=== PATIENT | female | born 1940 | race African-American/Black ===

== ENCOUNTER 2023-05-10 15:13 | Outpatient (AMB) | payer MEDICARE, SELFPAY ==
--- NOTE | 2023-05-10 15:31 | HO.NEPHOV ---
Vital Signs 05/10/23 15:33 Height 5 ft 6 in Weight 210 lb 8 oz BMI 34.0 BP 122/74 Blood Pressure Location Lt brachial Position Sitting Pulse 62 Pulse Source Pulse Oximeter Pulse Oximetry (%) 96 Oxygen Delivery Method Room Air Intake Visit Reasons: R/S 05/03/2023/ # Disconnected House Father Required: No Accompanied by: Self / Same As Patient Allergies naproxen Allergy (Unknown, Verified 05/10/23 15:36) Unknown oxycodone [Percodan] Allergy (Unknown, Verified 05/10/23 15:36) Unknown Codeine Phosphate Allergy (Unknown, Uncoded 05/10/23 15:36) Unknown Latex Gloves Allergy (Unknown, Uncoded 05/10/23 15:36) Unknown HPI Comments Details: I had the privilege of seeing Gloria in follow up of her CKD and hypertension. She has been compliant with her medications. Her BP has been at goal and she is tolerating current medication regimen. She has no nausea, vomiting,diarrhea, edema, hematuria, renal stones, flank pain, orthostatic symptoms, NSAID use or any new systemic symptoms. She tries to maintain good hydration and currently feels well. [facility] Medical History (Updated 05/10/23 @ 16:04 by Dipesh cSott MD) Hypertension CKD (chronic kidney disease) stage 3, GFR 30-59 ml/min Surgical History (Updated 05/10/23 @ 15:40 by Dorinda Magana MA) Hx of cholecystectomy History of hysterectomy Family History (Updated 05/10/23 @ 15:41 by Dorinda Magana MA) Father Heart disease Social History (Updated 05/10/23 @ 15:41 by Dorinda Magana MA) Alcohol intake: never Patient Tobacco Use Status: Former Tobacco user Physical Exam Vital Signs: Last Vital Signs Pulse 62 05/10/23 15:33 BP 122/74 05/10/23 15:33 Pulse Ox 96 05/10/23 15:33 Oxygen Delivery Method Room Air 05/10/23 15:33 BMI result Body Mass Index 34.0 Const General: comfortable and no acute distress Orientation/consciousness: patient oriented x3 HEENT Head: Yes normocephalic Mouth: Normal oral and palatal mucosa present Eyes EOM: EOMs intact bilaterally Neck Neck: Yes supple Resp Auscultation: clear to auscultation bilaterally Cardio Jugular venous distension: no JVD Rate: regular rate GI Palpation (GI): Soft to palpation Auscultation: normal bowel sounds General: Yes no CVA tenderness Back/Spine/Pelvis Back: no CVA tenderness Skin General skin exam: no rashes or lesions noted Neuro General: patient oriented x3 and moves all extremities Extrem General: Yes no pedal edema Results Reviewed Nephrology Results: No Data to Display Assessment & Plan Assessment & Plan (1) CKD (chronic kidney disease) stage 3, GFR 30-59 ml/min: Code(s): N18.30 - Chronic kidney disease, stage 3 unspecified Category: Medical Qualifiers: Chronic kidney disease stage 3 subtype: stage 3a (GFR 45-59) Qualified Code(s): N18.31 - Chronic kidney disease, stage 3a (2) Hypertension: Code(s): I10 - Essential (primary) hypertension Category: Medical Qualifiers: Hypertension type: primary hypertension Qualified Code(s): I10 - Essential (primary) hypertension Plan Gloria has long standing hypertension and 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 Her BP has been at goal. She is on ACEI. Her renal functions has been stable. Her urine output is good. She has no orthostasis. She does not take NSAID's and maintain good hydration. I did not make any medication changes today. Follow up labs ordered. Answered all questions. F/U appointment given
[2023-05-10 15:33] VITALS: BP 122/74; PULSE 62; O2SAT 96; BMI 34.0
== END 2023-05-10 16:11 | disposition home or self-care (01) ==
PROVIDERS: PCP Internal Medicine; Visit Provider Internal Medicine Nephrology
DX: N18.31 Chronic kidney disease, stage 3a (principal); I10 Essential (primary) hypertension
CPT/HCPCS: 99214

== ENCOUNTER → 2023-05-10 15:13 | Outpatient (BNVA) | payer MEDICARE, SELFPAY | PROVIDERS: Visit Provider Internal Medicine Nephrology | DX: I12.9 Hypertensive chronic kidney disease with stage 1 through stage 4 chronic kidney disease, or unspecified chronic kidney disease (principal); N18.31 Chronic kidney disease, stage 3a | CPT/HCPCS: 99212 ==

== ENCOUNTER 2023-10-05 13:06 | Outpatient (REF) | payer MEDICARE, SELFPAY ==
[2023-10-05 18:17] LABS: Anion Gap 10 (12-20); Blood Urea Nitrogen 22 mg/dL (9-16); Carbon Dioxide 28 mmol/L (22-29); Chloride 107 mmol/L (96-108); Estimated Glomerular Filt Rate 53; Potassium 4.6 mmol/L (3.3-5.1); Sodium 140 mmol/L (135-145)
[2023-10-05 18:51] LABS: Creatinine Urine 151.94 mg/dL; Protein/Creatinine Ratio, Ur 0.06 (<0.2); Total Protein Urine Random 9 mg/dL (<12)
== END 2023-10-05 13:07 | disposition home or self-care (01) ==
LOC: HO.HKASLDS 13:06
PROVIDERS: Visit Provider Internal Medicine Nephrology
DX: N18.30 Chronic kidney disease, stage 3 unspecified (principal)
CPT/HCPCS: 36415; 80051; 82565; 82570; 84156; 84520

== ENCOUNTER 2023-10-13 15:19 | Outpatient (AMB) | payer MEDICARE, SELFPAY ==
[2023-10-13 15:37] VITALS: BP 130/80; PULSE 75; O2SAT 96; BMI 32.2
--- NOTE | 2023-10-13 15:37 | HO.NEPHOV ---
Vital Signs 10/13/23 15:37 Height 5 ft 6 in Weight 199 lb 8 oz BMI 32.2 BP 130/80 Blood Pressure Location Lt brachial Position Sitting Pulse 75 Pulse Source Pulse Oximeter Pulse Oximetry (%) 96 Oxygen Delivery Method Room Air Intake Visit Reasons: 4 mon follow up/CONF Emergency Care Attendant Required: No Accompanied by: Self / Same As Patient Allergies naproxen Allergy (Unknown, Verified 10/13/23 15:39) Unknown oxycodone [Percodan] Allergy (Unknown, Verified 10/13/23 15:39) Unknown Codeine Phosphate Allergy (Unknown, Uncoded 05/10/23 15:36) Unknown Latex Gloves Allergy (Unknown, Uncoded 05/10/23 15:36) Unknown HPI Comments Details: I had the privilege of seeing Gloria in follow up of her CKD and hypertension. She has been compliant with her medications. Her BP has been at goal and she is tolerating current medication regimen. She has no nausea, vomiting,diarrhea, edema, hematuria, renal stones, flank pain, orthostatic symptoms, NSAID use or any new systemic symptoms. She tries to maintain good hydration and currently feels well. [facility] Medical History (Updated 05/10/23 @ 16:04 by Dipesh Scott MD) Hypertension CKD (chronic kidney disease) stage 3, GFR 30-59 ml/min Surgical History Hx of cholecystectomy History of hysterectomy Family History Father Heart disease Social History Alcohol intake: never Patient Tobacco Use Status: Former Tobacco user Review of Systems Const All systems reviewed & are unremarkable except as noted in HPI and below Physical Exam Vital Signs: Last Vital Signs Pulse 75 10/13/23 15:37 BP 150/80 H 10/13/23 15:37 Pulse Ox 96 10/13/23 15:37 Oxygen Delivery Method Room Air 10/13/23 15:37 BMI result Body Mass Index 32.2 Const General: comfortable and no acute distress Orientation/consciousness: patient oriented x3 HEENT Head: Yes normocephalic Mouth: Normal oral and palatal mucosa present Eyes EOM: EOMs intact bilaterally Neck Neck: Yes supple Resp Auscultation: clear to auscultation bilaterally Cardio Jugular venous distension: no JVD Rate: regular rate GI Palpation (GI): Soft to palpation Auscultation: normal bowel sounds General: Yes no CVA tenderness Back/Spine/Pelvis Back: no CVA tenderness Skin General skin exam: no rashes or lesions noted Neuro General: patient oriented x3 and moves all extremities Extrem General: Yes no pedal edema Results Reviewed Nephrology Results: Sodium 140 mmol/L (135-145) 10/05/23 Potassium 4.6 mmol/L (3.3-5.1) 10/05/23 Chloride 107 mmol/L (96-108) 10/05/23 Carbon Dioxide 28 mmol/L (22-29) 10/05/23 BUN 22 mg/dL (9-16) H 10/05/23 Creatinine 1.01 mg/dL (0.5-1.4) 10/05/23 Urine Creatinine 151.94 mg/dL 10/05/23 Protein/Creatinin Ratio 0.06 (<0.2) 10/05/23 Assessment & Plan Assessment & Plan (1) CKD (chronic kidney disease) stage 3, GFR 30-59 ml/min: Code(s): N18.30 - Chronic kidney disease, stage 3 unspecified Category: Medical Qualifiers: Chronic kidney disease stage 3 subtype: stage 3a (GFR 45-59) Qualified Code(s): N18.31 - Chronic kidney disease, stage 3a (2) Hypertension: Code(s): I10 - Essential (primary) hypertension Category: Medical Qualifiers: Hypertension type: primary hypertension Qualified Code(s): I10 - Essential (primary) hypertension Plan Gloria has long standing hypertension and 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 Her BP has been at goal. She is on ACEI. Her renal functions has been stable. Her urine output is good. She has no orthostasis. She does not take NSAID's and maintain good hydration. I did not make any medication changes today. Follow up labs ordered. Answered all questions. F/U appointment given Orders: Orders Creatinine Today I10 - Essential (primary) hypertension, N18.31 - Chronic kidney disease, stage 3a Blood Urea Nitrogen Today I10 - Essential (primary) hypertension, N18.31 - Chronic kidney disease, stage 3a Electrolytes Today I10 - Essential (primary) hypertension, N18.31 - Chronic kidney disease, stage 3a Coding Level of Care Code Est Pt Level 4 (39328) Diagnoses Stage 3a chronic kidney disease N18.31 Chronic kidney disease stage 3 subtype: stage 3a (GFR 45-59) Primary hypertension I10 Hypertension type: primary hypertension
== END 2023-10-13 15:58 | disposition home or self-care (01) ==
PROVIDERS: PCP Internal Medicine; Visit Provider Internal Medicine Nephrology
DX: N18.31 Chronic kidney disease, stage 3a (principal); I10 Essential (primary) hypertension
CPT/HCPCS: 99214

== ENCOUNTER → 2023-10-13 15:19 | Outpatient (BNVA) | payer MEDICARE, SELFPAY | PROVIDERS: PCP Internal Medicine; Visit Provider Internal Medicine Nephrology | DX: I12.9 Hypertensive chronic kidney disease with stage 1 through stage 4 chronic kidney disease, or unspecified chronic kidney disease (principal); N18.31 Chronic kidney disease, stage 3a | CPT/HCPCS: 99212 ==

== ENCOUNTER 2024-04-11 15:28 | Outpatient (REF) | payer MEDICARE, SELFPAY ==
[2024-04-11 18:16] LABS: Anion Gap 14 (12-20); Blood Urea Nitrogen 16 mg/dL (9-16); Carbon Dioxide 19 mmol/L (22-29); Chloride 110 mmol/L (96-108); Estimated Glomerular Filt Rate > 60; Potassium 4.3 mmol/L (3.3-5.1); Sodium 139 mmol/L (135-145)
--- OUTSIDE RECORDS SUMMARY | 2024-04-11 18:42 | XMS_ITS | Clinical Summary ---
Author Organization [facility] ity Address [address] [place] [id number] Care Team Providers Care Welcome Wagon Hostess Name Role Phone Frankie Norton MD Primary Care Provider [phone] Surgical History Surgery Date Site/Laterality Comments HYSTERECTOMY PROCEDURE: HISTORICAL HYSTERECTOMY OTHER SURGICAL HISTORY PROCEDURE: ---- OTHER ----; COMMENT: laser eye surgery CHOLECYSTECTOMY 03.01.15 PROCEDURE: HISTORICAL CHOLECYSTECTOMY Medical History Medical History Date Comments Essential hypertension, benign 11/16/2004 D X:Essential hypertension, benign Obesity, unspecified 11/16/2004 DX:Obesity, unspecified Unspecified asthma(493.90) 11/16/2004 DX:Un specified asthma(493.90) Generalized osteoarthrosis, unspecified site 11/16/2004 DX:Generalized osteoarthrosi s, unspecified site Glaucoma 05/08/2012 DX:Glaucoma 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) Family History Medical History Relation Name Comments Depression Daughter 1 Anemia Daughter 2 Coronary artery disease Father Hypertension Father Colon cancer Mother in her 70's Diabetes Sister later in life Blindness Neg Hx Breast cancer Neg Hx Cataracts Neg Hx Glaucoma Neg Hx Macular degeneration Neg Hx Strabismus Neg Hx Relation Name Status Comments Daughter 1 Daughter 2 Father Mother Sister Social History Tobacco Use Types Packs/Day Years Used Date Smoking Tobacco: Never Smokeless Tobacco: Never Alcohol Use Standard Drinks/Week Comments No 0 (1 standard drink = 0.6 oz pur e alcohol) Comments Unknown Sex and Gender Information Value Date Recorded Sex Assigned at Not on file Legal Sex Female 7:07 PM EST Gender Identity Not on file Sexual Orientation Not on file Obstetrics History Last Filed Vital Signs Vital Sign Reading Time Taken Comments Blood Pressure 139/62 12/16/2022 3:48 PM EST Pulse 64 12/16/2022 3:48 PM EST Temperature - - Respiratory Rate - - Oxygen Saturation - - Inhaled Oxygen Concentration - - Weight 102 kg (224 lb 1.6 oz) 12/16/2022 3:48 PM EST Height 167.6 cm (5' 6 ) 12/16/2022 3:48 PM EST Body Mass Index 36.17 12/16/2022 3:48 PM EST Plan of Treatment Health Maintenance Due Date Last Done Comments Zoster Vaccines (2 of 3) 02/09/2012 12/15/2011 RSV Immunization Patients 60+ Years Old (1 - 1-dose 75+ series) 2017 Cholesterol Screening (Lipid Panel) 01/16/2022 Colorectal Cancer Screening: Colonoscopy 01/16/2022 Depression Screening 01/16/2022 Falls Risk Assessment 01/16/2022 Hypertension/CHF/CAD Annual BMP Blood Test 01/16/2022 Social Influencers of Health Screening 01/16/2022 COVID-19 Vaccine ( season) 2023 10/17/2023, 09/23/2020, 04/11/2020, Additional history exists DTaP,Tdap,and Td Vaccines (3 - Td or Tdap) 06/10/2031 06/09/2021, 12/19/2002 Osteoporosis Screening (Bone Density Screening) 01/15/2037 01/15/2022 Pneumococcal Vaccine: 50+ Years Completed 11/12/2019, 12/15/2018, 10/03/2017, Additional history exists Influenza Vaccine Completed 10/17/2023, 12/15/2018 HIB Vaccines Aged Out No longer eligi ble based on patient's age to complete this topic HPV Vaccines Aged Out No longer eligi ble based on patient's age to complete this topic Hepatitis A Vaccines Aged Out No long er eligible based on patient's age to complete this topic Hepatitis B Vaccines Aged Out No long er eligible based on patient's age to complete this topic IPV Vaccines Aged Out No longer eligi ble based on patient's age to complete this topic MMR Vaccines Aged Out No longer eligi ble based on patient's age to complete this topic Meningococcal ACWY Vaccine Aged Out N o longer eligible based on patient's age to complete this topic Meningococcal B Vacine Aged Out No lo nger eligible based on patient's age to complete this topic RSV Immunization Patients Under 20 months Aged Out No longer eligible based on patient's age to complete this topic Varicella Vaccines Aged Out No longer eligible based on patient's age to complete this topic Procedures Procedure Name Priority Date/Time Associated Diagnosis Comments DXA BONE DENSITY STUDY 1+ SITS AXIAL SKEL Routine 01/15/2022 10:54 AM EST Endocrine disorder, unspecified from Last 3 Months or Most Recently Relevant to Health Maintenance Results * DXA BONE DENSITY STUDY 1+ SITS AXIAL SKEL (01/15/2022 10:54 AM EST) Anatomical Region Laterality Modality Bone Densitometr y 09/02/2021 11:4 7 AM EDT Narrative 01/19/2022 8:23 AM EST BONE DENSITY SCAN (DEXA): FINDINGS: Lumbar Spine T-score is 1.1. ?? (SD relative to 20-29 y/o adult) Z-score is 3.7. ??(SD relative to age matched peers) This is considered normal by WHO criteria. Left Hip T-score is -1.5. Z-score is 0.8. This is considered osteopenia by WHO criteria. Comparison exam(s): None. IMPRESSION: IMPRESSION: Osteopenia by WHO criteria. This patient has a 15% risk of major osteoporotic fracture and a 3.5% risk of hip fracture over the next 10 years. (World Health Organization Fracture Risk Assessment) [facility] Department of Internal Medicine recommends using National Osteoporosis Foundation (NOF) guidelines in treatment decisions related to osteoporosis. NOF guidelines suggest considering treatment for postmenopausal women and men aged 50 or older presenting with the following: History of hip or vertebral fracture. T-score = -2.5 (DXA) at the femoral neck, total hip, or spine, after appropriate evaluation to exclude secondary causes. Low bone mass (T-score between -1.0 and -2.5 at the femoral neck or spine) AND a 10-year probability of a hip fracture = 3% OR a 10-year probability of a major osteoporosis-related fracture = 20% based on the [place]-adapted WHO algorithm Please note that all treatment decisions require clinical judgment and consideration of individual patient factors, including patient preferences, co-morbidities, previous drug use, risk factors not captured in the FRAX model (e.g., frailty, falls, vitamin D deficiency, increased bone turnover, interval significant decline in bone density) and possible under- or over-estimation of fracture risk by FRAX. Optional alternative screening schedule based on yancy Fuller., [facility] February 25, 2011 for patients with osteopenia (based on hip BMD T-score) is as follows: * ??advanced osteopenia (T scores -2.00 to -2.49), BMD testing every year * ??moderate osteopenia (T scores -1.50 to -1.99), BMD testing every 5 years mild osteopenia or normal BMD (T scores -1.50 and higher), BMD testing every 15 years Procedure Note Kim Larsen MD - 03/15/2023 BONE DENSITY SCAN (DEXA): FINDINGS: Lumbar Spine T-score is 1.1. (SD relative to 20-29 y/o adult) Z-score is 3.7. (SD relative to age matched peers) This is considered normal by WHO criteria. Left Hip T-score is -1.5. Z-score is 0.8. This is considered osteopenia by WHO criteria. Comparison exam(s): None. IMPRESSION: IMPRESSION: Osteopenia by WHO criteria. This patient has a 15% risk of majorosteoporotic fracture and a 3.5% risk of hip fracture over the next 10 years. (World HealthOrganization Fracture Risk Assessment) [facility] Department of Internal Medicine recommendsusing National Osteoporosis Foundation (NOF) guidelines in treatment decisions related toosteoporosis. NOF guidelines suggest considering treatment for postmenopausal women and menaged 50 or older presenting with the following: History of hip or vertebral fracture. T-score = -2.5 (DXA) at the femoral neck, total hip, or spine, afterappropriate evaluation to exclude secondary causes. Low bone mass (T-score between -1.0 and -2.5 at the femoral neck or spine)AND a 10-year probability of a hip fracture = 3% OR a 10-year probability of a majorosteoporosis-related fracture = 20% based on the [place]-adapted WHO algorithm Please note that all treatment decisions require clinical judgment andconsideration of individual patient factors, including patient preferences, co- morbidities,previous drug use, risk factors not captured in the FRAX model (e.g., frailty, falls, vitaminD deficiency, increased bone turnover, interval significant decline in bone density) andpossible under- or over-estimation of fracture risk by FRAX. Optional alternative screening schedule based on yancy Fuller., NEJMJanuary 2011 for patients with osteopenia (based on hip BMD T-score) is as follows: * advanced osteopenia (T scores -2.00 to -2.49), BMD testing every year * moderate osteopenia (T scores -1.50 to -1.99), BMD testing every 5years mild osteopenia or normal BMD (T scores -1.50 and higher), BMD testingevery 15 years Eliza NYE IMRupali DXA PROCEDURES Final Result from Last 3 Months or Most Recently Relevant to Health Maintenance Care Teams Welcome Wagon Hostess Relationship Specialty Start Date End Date Frankie Norton MD PCP - General Internal Medicine 06/09/21
--- OUTSIDE RECORDS SUMMARY | 2024-04-11 18:43 | XMS_ITS | Patient Health Record ---
Author Organization [facility] Address [address] [facility] [address] [place] [address] Care Team Providers Care Client Support Consultant Name Role Phone CARLOS KNOWLES Primary Care Provider Reason For Referral No Information Encounters Encounter Location Date Provider Diagnosis [facility] [address] [facility] [address] [place] [address] 11/02/2023 CARLOS KNOWLES Plan Of Treatment No Information Insurance Providers Payer Name Payer Address Payer Phone Subscriber Number Group Number Insured Name Patient Relationship to Insured Coverage Start Date Coverage End Date [facility] [address] [place] [id number] Gloria Quintanilla Self - patient is the insured
--- OUTSIDE RECORDS SUMMARY | 2024-04-11 18:43 | XMS_ITS | Clinical Summary ---
Author Organization [facility] Address [address] [facility] [address] [place] [address] Phone Care Team Providers Care Delimber Operator Name Role Phone Eliza Barros Primary Care Provider [phone] Allergies Active Allergy Reactions Criticality Noted Date Comments Atenolol 11/16/2004 Ceftriaxone Other (see comments) 03/19/2015 Given at hospital visit 02/28/15 Codeine Other (see comments) 11/02/2016 Latex Other (see comments) 11/02/2016 Morphine 11/02/2016 Naproxen Other (see comments) 03/22/2011 Pentazocine 11/16/2004 Medications albuterol HFA (PROVENTIL HFA;VENTOLIN HFA) 108 (90 Base) MCG/ACT inhaler Comments: Filled Date: Dec 29 2010 12:00AM Duration: 16 Active ferrous sulfate 325 (65 Fe) MG tablet Take 1 tablet by mouth 2 (two) times a day Active metoprolol tartrate 25 MG tablet Take 0.5 tablets by mouth 2 (two) times a day 12/13/2019 Active benazepril (LOTENSIN) 10 MG tablet Take 1 tablet (10 mg total) by mouth 1 (one) time each day 90 tablet 3 08/31/2022 Active cloNIDine (CATAPRES) 0.1 MG tablet Take 1 tablet (0.1 mg total) by mouth in the morning and 1 tablet (0.1 mg total) in the evening. 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 Rios Glaucoma 05/08/2012 09/15/2020 Nuclear sclerosis 05/08/2012 09/15/2020 Retinal hemorrhage 05/08/2012 Cobalamin deficiency 04/21/2011 021 Impaired fasting glucose 04/10/201110/2020 Polyp of colon 04/10/2011 09/15/2020 Overview (09/15/2020): Apparently 5yr f/u per 09/22 colonoscopy, based on 2 small polyps, not clear on report Systolic dysfunction 04/10/2011 021 Overview (09/15/2020): EF 45% on echo 2006 Hearing loss 03/22/2011 09/15/2020 Sleep apnea 03/22/2011 09/15/2020 Overview (09/15/2020): Dr Christine Overweight 11/16/2004 09/15/2020 Immunizations Name Administration Dates Next Due Pneumococcal Polysaccharide 09/19/2013 Family History Medical History Relation Comments Heart disease Father Hypertension Father Relation Status Comments Father Mother Social History Tobacco Use Types Packs/Day Years Used Date Smoking Tobacco: Never Smokeless Tobacco: Never Tobacco Cessation:Counseling Given: Not Answered Alcohol Use Standard Drinks/Week Comments No 0 (1 standard drink = 0.6 oz pur e alcohol) Comments Unknown Sex and Gender Information Value Date Recorded Sex Assigned at Not on file Legal Sex Female 5:12 PM EST Gender Identity Not on file Sexual Orientation Not on file Last Filed Vital Signs Vital Sign Reading Time Taken Comments Blood Pressure 130/68 10/28/2022 2:10 PM EDT Pulse 75 10/28/2022 2:10 PM EDT Temperature - - Respiratory Rate - - Oxygen Saturation 96% 10/28/2022 2:10 PM EDT Inhaled Oxygen Concentration - - Weight 91.6 kg (202 lb) 10/28/2022 2:10 PM EDT Height 167.6 cm (5' 6 ) 09/13/2019 12:00 PM EDT Body Mass Index 32.6 09/13/2019 12:00 PM EDT Plan of Treatment Health Maintenance Due Date Last Done Comments Pneumococcal Vaccine: 65+ Ye ars (2 of 2 - PCV) 09/19/2014 09/19/2013 Influenza Vaccine (#1) 2023 Hepatitis B Vaccine Aged Out No longe r eligible based on patient's age to complete this topic Insurance [employer] Care Teams Delimber Operator Relationship Specialty Start Date End Date Eliza Barros PA PCP - General Physician Train Brakeman 04/19/22
--- OUTSIDE RECORDS SUMMARY | 2024-04-11 18:43 | XMS_ITS ---
Author Organization [facility] Address [address] [address] Care Team Providers Care Rolled Gold Plater Name Role Phone CARLOS KNOWLES Primary Care Provider REASON FOR VISIT FYI only Encounters Encounter Location Date Provider Diagnosis [facility] [address] [facility] [address] [place] [address] 11/02/2023 CARLOS KNOWLES Plan Of Treatment No Information Progress Notes * Gloria WHITE LDOB:1940 ( 82 yo F)Acc No.[id number]:11/02/2023 Patient:?Gloria WHITE :1940???Age:82 Y???Sex:Female Phone: Address:[address] [place] [id number] * true * Date:? Generated for Nesha danielle/Kit/eTransmitting on:?04/11/2024 06:42 PM EST
== END 2024-04-11 15:29 | disposition home or self-care (01) ==
LOC: HO.HKASLDS 15:28
PROVIDERS: Visit Provider Internal Medicine Nephrology
DX: N18.31 Chronic kidney disease, stage 3a (principal); I10 Essential (primary) hypertension
CPT/HCPCS: 36415; 80051; 82565; 84520

== ENCOUNTER 2024-04-12 13:30 | Outpatient (AMB) | payer MEDICARE, SELFPAY ==
--- NOTE | 2024-04-12 13:32 | HO.NEPHOV_ITS ---
Vital Signs 04/12/24 13:52 Height 5 ft 6 in Weight 196 lb 6 oz BMI 31.7 BP 160/70 H Blood Pressure Location Lt brachial Position Sitting Pulse 90 Pulse Source Pulse Oximeter Pulse Oximetry (%) 96 Oxygen Delivery Method Room Air Intake Visit Reasons: 6 mon follow up- Conf Stock Grader Required: No Accompanied by: Self / Same As Patient Allergies naproxen Allergy (Unknown, Verified 04/12/24 13:52) Unknown oxycodone [Percodan] Allergy (Unknown, Verified 04/12/24 13:52) Unknown Codeine Phosphate Allergy (Unknown, Uncoded 05/10/23 15:36) Unknown Latex Gloves Allergy (Unknown, Uncoded 05/10/23 15:36) Unknown HPI Comments Details: I had the privilege of seeing Gloria in follow up of her CKD and hypertension. She forgot to take her medication this morning. She usually has been compliant with her medications. Her BP has been at goal and she is tolerating current medicat ion regimen. She has no nausea, vomiting,diarrhea, edema, hematuria, renal stones, flank pain, orthostatic symptoms, NSAID use or any new systemic symptoms. She tries to maintain good hydration and currently feels well. [facility] Medical History (Updated 05/10/23 @ 16:04 by Dipesh Scott MD) Hypertension CKD (chronic kidney disease) stage 3, GFR 30-59 ml/min Surgical History Hx of cholecystectomy History of hysterectomy Family History Father Heart disease Social History Alcohol intake: never Patient Tobacco Use Status: Former Tobacco user Review of Systems Const All systems reviewed & are unremarkable except as noted in HPI and below Physical Exam Vital Signs: Last Vital Signs Pulse 90 04/12/24 13:52 BP 160/70 H 04/12/24 13:52 Pulse Ox 96 04/12/24 13:52 Oxygen Delivery Method Room Air 04/12/24 13:52 BMI result Body Mass Index 31.7 Const General: comfortable and no acute distress Orientation/consciousness: patient oriented x3 HEENT Head: Yes normocephalic Mouth: Normal oral and palatal mucosa present Eyes EOM: EOMs intact bilaterally Neck Neck: Yes supple Resp Auscultation: clear to auscultation bilaterally Cardio Jugular venous distension: no JVD Rate: regular rate GI Palpation (GI): Soft to palpation Auscultation: normal bowel sounds Skin General skin exam: no rashes or lesions noted Neuro General: patient oriented x3 and moves all extremities Extrem General: Yes no pedal edema Results Reviewed Nephrology Results: Sodium 139 mmol/L (135-145) 04/11/24 Potassium 4.3 mmol/L (3.3-5.1) 04/11/24 Chloride 110 mmol/L (96-108) H 04/11/24 Carbon Dioxide 19 mmol/L (22-29) L 04/11/24 BUN 16 mg/dL (9-16) 04/11/24 Creatinine 0.83 mg/dL (0.5-1.4) 04/11/24 Urine Creatinine 151.94 mg/dL 10/05/23 Protein/Creatinin Ratio 0.06 (<0.2) 10/05/23 Assessment & Plan Assessment & Plan (1) CKD (chronic kidney disease) stage 3, GFR 30-59 ml/min: Code(s): N18.30 - Chronic kidney disease, stage 3 unspecified Category: Medical Qualifiers: Chronic kidney disease stage 3 subtype: stage 3a (GFR 45-59) Qualified Code(s): N18.31 - Chronic kidney disease, stage 3a (2) Hypertension: Code(s): I10 - Essential (primary) hypertension Category: Medical Qualifiers: Hypertension type: primary hypertension Qualified Code(s): I10 - Essential (primary) hypertension Plan Gloria has long standing hypertension and 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 Her BP has been at goal at home. She is on ACEI. Her renal functions has been stable. Her urine output is good. She has no orthostasis. She does not take NSAID's and maintain good hydration. I did not make any medication changes today. Follow up labs ordered. F/U appointment given Orders: Orders Electrolytes 6 Months I10 - Essential (primary) hypertension, N18.31 - Chronic kidney disease, stage 3a Calcium 6 Months I10 - Essential (primary) hypertension, N18.31 - Chronic kidney disease, stage 3a Creatinine 6 Months I10 - Essential (primary) hypertension, N18.31 - Chronic kidney disease, stage 3a Blood Urea Nitrogen 6 Months I10 - Essential (primary) hypertension, N18.31 - Chronic kidney disease, stage 3a Protein Creatinine Ratio, Ur 6 Months I10 - Essential (primary) hypertension, N18.31 - Chronic kidney disease, stage 3a Coding Level of Care Code Est Pt Level 4 (56187) Diagnoses Stage 3a chronic kidney disease N18.31 Chronic kidney disease stage 3 subtype: stage 3a (GFR 45-59) Primary hypertension I10 Hypertension type: primary hypertension
[2024-04-12 13:52] VITALS: BP 160/70; PULSE 90; O2SAT 96; BMI 31.7
--- OUTSIDE RECORDS SUMMARY | 2024-04-12 16:27 | XMS_ITS ---
Author Organization [facility] Address [address] [address] Care Team Providers Care Fur Polisher Name Role Phone CARLOS KNOWLES Primary Care Provider REASON FOR VISIT FYI only Encounters Encounter Location Date Provider Diagnosis [facility] 294 [facility] 202 [place] [address] 11/02/2023 CARLOS KNOWLES Plan Of Treatment No Information Progress Notes * Gloria WHITE LDOB:1940 ( 82 yo F)Acc No.[id number]:11/02/2023 Patient:?Gloria WHITE :1940???Age:82 Y???Sex:Female Phone: Address:[address] [place] [id number] * true * Date:? Generated for Nesha danielle/Kit/eTransmitting on:?04/12/2024 04:27 PM EST
--- OUTSIDE RECORDS SUMMARY | 2024-04-12 16:27 | XMS_ITS | Patient Health Record ---
Author Organization [facility] Address 294 [facility] 202 [place] [address] Care Team Providers Care Cargo Inspector Name Role Phone CARLOS KNOWLES Primary Care Provider Reason For Referral No Information Encounters Encounter Location Date Provider Diagnosis [facility] 294 [facility] 202 [place] [address] 11/02/2023 CARLOS KNOWLES Plan Of Treatment No Information Insurance Providers Payer Name Payer Address Payer Phone Subscriber Number Group Number Insured Name Patient Relationship to Insured Coverage Start Date Coverage End Date [facility] [address] [place] [id number] [phone] [id number] Gloria Quintanilla Self - patient is the insured
--- OUTSIDE RECORDS SUMMARY | 2024-04-12 16:27 | XMS_ITS | Clinical Summary ---
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 (World HealthOrganization Fracture Risk Assessment) [facility] Department of Internal Medicine recommendsusing National Osteoporosis [...] Recently Relevant to Health Maintenance Care Teams Fire Truck Driver Relationship Specialty Start Date End Date Frankie Norton MD PCP - General Internal Medicine 06/09/21
--- OUTSIDE RECORDS SUMMARY | 2024-04-12 16:27 | XMS_ITS | Clinical Summary ---
Author Organization [facility] Address 100 [facility] [address] [place] [address] Phone Care Team Providers Care Water Sponger Name Role Phone Eliza Barros Primary Care Provider Allergies Active Allergy Reactions Criticality Noted Date [...] Hypertension 11/16/2004 Overview (09/15/2020): Dr Carballo is quantitative strategy analyst Resolved Problems Problem Noted Date Diagnosed Date [...] HEALTH MEDICARE [facility] MEDIC[facility] Care Teams Water Sponger Relationship Specialty Start Date End Date Eliza Barros PA PCP - General Physician Accountant 04/19/22
== END 2024-04-12 14:02 | disposition home or self-care (01) ==
PROVIDERS: PCP Internal Medicine; Visit Provider Internal Medicine Nephrology
DX: N18.31 Chronic kidney disease, stage 3a (principal); I10 Essential (primary) hypertension
CPT/HCPCS: 99214

== ENCOUNTER → 2024-04-12 13:30 | Outpatient (BNVA) | payer MEDICARE, SELFPAY | PROVIDERS: PCP Internal Medicine; Visit Provider Internal Medicine Nephrology | DX: I12.9 Hypertensive chronic kidney disease with stage 1 through stage 4 chronic kidney disease, or unspecified chronic kidney disease (principal); N18.31 Chronic kidney disease, stage 3a | CPT/HCPCS: 99212 ==

== ENCOUNTER 2024-05-10 10:09 | Outpatient (AMB) | payer MEDICARE, SELFPAY ==
--- NOTE | 2024-05-10 10:18 | HO.NEPHOV ---
Vital Signs 05/10/24 10:21 Height 5 ft 6 in Weight 199 lb BMI 32.1 BP 110/64 Blood Pressure Location Lt brachial Position Sitting Pulse 46 L Pulse Source Pulse Oximeter Pulse Oximetry (%) 99 Oxygen Delivery Method Room Air Intake Visit Reasons: Kidney questions and symptoms Manager Target Required: No Accompanied by: Grand Child Allergies naproxen Allergy (Unknown, Verified 05/10/24 10:21) Unknown oxycodone [Percodan] Allergy (Unknown, Verified 05/10/24 10:21) Unknown Codeine Phosphate Allergy (Unknown, Uncoded 05/10/23 15:36) Unknown Latex Gloves Allergy (Unknown, Uncoded 05/10/23 15:36) Unknown HPI Comments Details: Gloria was seen in follow up of her CKD and hypertension. She has lost a lot of weight and her BP has been going low on her medications to a point that she is feeling wobbly and dizzy with orthostatic symptoms. She usually has been compliant with her medications. She recently had pneumonia and was seen in Urgent Care. She has no vomiting,diarrhea, hematuria, renal stones, flank pain, orthostatic symptoms, NSAID use or any new systemic symptoms except for edema. She tries to maintain good hydration and currently feels well. [facility] Medical History (Updated 05/10/23 @ 16:04 by Dipesh Scott MD) Hypertension CKD (chronic kidney disease) stage 3, GFR 30-59 ml/min Surgical History Hx of cholecystectomy History of hysterectomy Family History Father Heart disease Social History Alcohol intake: never Patient Tobacco Use Status: Former Tobacco user Review of Systems Const All systems reviewed & are unremarkable except as noted in HPI and below Physical Exam Vital Signs: Last Vital Signs Pulse 46 L 05/10/24 10:21 BP 110/64 05/10/24 10:21 Pulse Ox 99 05/10/24 10:21 Oxygen Delivery Method Room Air 05/10/24 10:21 BMI result Body Mass Index 32.1 Const General: comfortable and no acute distress Orientation/consciousness: patient oriented x3 HEENT Head: Yes normocephalic Mouth: Normal oral and palatal mucosa present Eyes EOM: EOMs intact bilaterally Neck Neck: Yes supple Resp Auscultation: clear to auscultation bilaterally Cardio Jugular venous distension: no JVD Rate: regular rate GI Palpation (GI): Soft to palpation Auscultation: normal bowel sounds General: Yes no CVA tenderness Back/Spine/Pelvis Back: no CVA tenderness Skin General skin exam: no rashes or lesions noted Neuro General: patient oriented x3 and moves all extremities Results Reviewed Nephrology Results: Sodium 139 mmol/L (135-145) 04/11/24 Potassium 4.3 mmol/L (3.3-5.1) 04/11/24 Chloride 110 mmol/L (96-108) H 04/11/24 Carbon Dioxide 19 mmol/L (22-29) L 04/11/24 BUN 16 mg/dL (9-16) 04/11/24 Creatinine 0.83 mg/dL (0.5-1.4) 04/11/24 Urine Creatinine 151.94 mg/dL 10/05/23 Protein/Creatinin Ratio 0.06 (<0.2) 10/05/23 Assessment & Plan Assessment & Plan (1) Hypertension: Code(s): I10 - Essential (primary) hypertension Category: Medical Qualifiers: Hypertension type: primary hypertension Qualified Code(s): I10 - Essential (primary) hypertension Plan Gloria has long standing hypertension and 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 Her BP has been low. I reduced her Amlodipine to 5 mg given edema( which I may D/C) . I also reduced Clonidine to 0.05 mg bid which I may wean her off. She is on ACEI. Her renal functions has been stable. Her urine output is good. She does not take NSAID's and maintain good hydration. I did not make any other medication changes today. Time spent 40 mts. F/U appointment given Coding Level of Care Code Est Pt Level 5 (76708) Diagnoses Primary hypertension I10 Hypertension type: primary hypertension
[2024-05-10 10:21] VITALS: BP 110/64; PULSE 46; O2SAT 99; BMI 32.1
--- OUTSIDE RECORDS SUMMARY | 2024-05-10 11:00 | XMS_ITS ---
Author Organization [facility] Address [address] [address] Care Team Providers Care Senior Materials Analyst Name Role Phone CARLOS KNOWLES Primary Care Provider REASON FOR VISIT FYI only Encounters Encounter Location Date Provider Diagnosis [facility] 294 [facility] 202 [place] [address] 11/02/2023 CARLOS KNOWLES Plan Of Treatment No Information Progress Notes * Gloria WHITE LDOB:1940 ( 82 yo F)Acc No.[id number]:11/02/2023 Patient:?Gloria WHITE :1940???Age:82 Y???Sex:Female Phone: Address:[address] [place] [address] * true * Date:? Generated for Nesha danielle/Kit/eTransmitting on:?05/10/2024 11:00 AM EDT
--- OUTSIDE RECORDS SUMMARY | 2024-05-10 11:00 | XMS_ITS | Patient Health Record ---
Author Organization [facility] Address 294 [facility] 202 [place] [address] Care Team Providers Care Aircraft Skin Burnisher Name Role Phone CARLOS KNOWLES Primary Care Provider [phone] Reason For Referral No Information Encounters Encounter Location Date Provider Diagnosis [facility] 294 [facility] 202 [place] [address] 11/02/2023 CARLOS KNOWLES Plan Of Treatment No Information Insurance Providers Payer Name Payer Address Payer Phone Subscriber Number Group Number Insured Name Patient Relationship to Insured Coverage Start Date Coverage End Date [facility] [address] [place] [id number] Gloria Quintanilla Self - patient is the insured
--- OUTSIDE RECORDS SUMMARY | 2024-05-10 11:00 | XMS_ITS | Clinical Summary ---
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) ([facility]/HCC) 05/08/2012 DX:HOSPICE VOLUNTEER (background diabetic retinopathy) ([facility]) Family History Medical History Relation Name Comments [...] (2 of 3) 02/09/2012 12/15/2011 RSV Immunization Adult Patients (1 - 1-dose 75+ series) 2017 Cholesterol [...] (World Health Organization Fracture Risk Assessment) [facility] Department of Internal Medicine recommends using National [...] alternative screening schedule based on yancy Fuller., [facility] February 25, 2011 for patients [...] years. (World HealthOrganization Fracture Risk Assessment) [facility] Department of Internal Medicine recommendsusing National Osteoporosis [...] higher), BMD testingevery 15 years Eliza NYE IM DXA PROCEDURES Final Result from Last 3 Months or Most Recently Relevant to Health Maintenance Care Teams Sustainability Manager Relationship Specialty Start Date End Date Frankie Norton MD PCP - General Internal Medicine 06/09/21
--- OUTSIDE RECORDS SUMMARY | 2024-05-10 11:01 | XMS_ITS | Clinical Summary ---
Author Organization [facility] Address 100 [facility] [address] [place] [address] Phone Care Team Providers Care Violin Teacher Name Role Phone Eliza Barros Primary Care Provider [phone] Allergies Active Allergy Reactions Criticality Noted Date [...] Hypertension 11/16/2004 Overview (09/15/2020): Dr Carballo is maintenance planning clerk Resolved Problems Problem Noted Date Diagnosed Date [...] HEALTH MEDICARE [facility] MEDIC[facility] Care Teams Violin Teacher Relationship Specialty Start Date End Date Eliza Barros PA PCP - General Physician Level Glass Vial Filler 04/19/22
== END 2024-05-10 10:58 | disposition home or self-care (01) ==
LOC: HO.HKAS 10:10
PROVIDERS: PCP Internal Medicine; Visit Provider Internal Medicine Nephrology
DX: I10 Essential (primary) hypertension (principal)
CPT/HCPCS: 99215

== ENCOUNTER → 2024-05-10 10:09 | Outpatient (BNVA) | payer MEDICARE, SELFPAY | PROVIDERS: PCP Internal Medicine; Visit Provider Internal Medicine Nephrology | DX: I12.9 Hypertensive chronic kidney disease with stage 1 through stage 4 chronic kidney disease, or unspecified chronic kidney disease (principal); N18.9 Chronic kidney disease, unspecified | CPT/HCPCS: 99212 ==

== ENCOUNTER 2024-05-31 10:41 | Outpatient (AMB) | payer MEDICARE, SELFPAY ==
--- NOTE | 2024-05-31 10:47 | HO.NEPHOV ---
Vital Signs 05/31/24 10:49 Height 5 ft 6 in Weight 195 lb 4 oz BMI 31.5 BP 118/78 Blood Pressure Location Lt brachial Position Sitting Pulse 50 Pulse Source Pulse Oximeter Pulse Oximetry (%) 95 Oxygen Delivery Method Room Air Intake Visit Reasons: 2wk follow-up No labs-LVM Machine Operator Replanter Required: No Accompanied by: Grand Child Allergies naproxen Allergy (Unknown, Verified 05/31/24 10:49) Unknown oxycodone [Percodan] Allergy (Unknown, Verified 05/31/24 10:49) Unknown Codeine Phosphate Allergy (Unknown, Uncoded 05/10/23 15:36) Unknown Latex Gloves Allergy (Unknown, Uncoded 05/10/23 15:36) Unknown HPI Comments Details: Gloria was seen in follow up of her CKD and hypertension. She has lost a lot of weight and her BP has been going low on her medications to a point that she is feeling wobbly and dizzy with orthostatic symptoms which has resolved with medication adjustment. She usually has been compliant with her medications. She has no vomiting,diarrhea, hematuria, renal stones, flank pain, orthostatic symptoms, NSAID use or any new systemic symptoms . She tries to maintain good hydration and currently feels well. [facility] Medical History (Updated 05/10/23 @ 16:04 by Dipesh Scott MD) Hypertension CKD (chronic kidney disease) stage 3, GFR 30-59 ml/min Surgical History Hx of cholecystectomy History of hysterectomy Family History Father Heart disease Social History Alcohol intake: never Patient Tobacco Use Status: Former Tobacco user Review of Systems Const All systems reviewed & are unremarkable except as noted in HPI and below Physical Exam Vital Signs: Last Vital Signs Pulse 50 05/31/24 10:49 BP 118/78 05/31/24 10:49 Pulse Ox 95 05/31/24 10:49 Oxygen Delivery Method Room Air 05/31/24 10:49 BMI result Body Mass Index 31.5 Const General: comfortable and no acute distress Orientation/consciousness: patient oriented x3 HEENT Head: Yes normocephalic Mouth: Normal oral and palatal mucosa present Eyes EOM: EOMs intact bilaterally Neck Neck: Yes supple Resp Auscultation: clear to auscultation bilaterally Cardio Jugular venous distension: no JVD Rate: regular rate GI Palpation (GI): Soft to palpation Auscultation: normal bowel sounds General: Yes no CVA tenderness Back/Spine/Pelvis Back: no CVA tenderness Skin General skin exam: no rashes or lesions noted Neuro General: patient oriented x3 and moves all extremities Extrem General: Yes no pedal edema Results Reviewed Nephrology Results: Sodium 139 mmol/L (135-145) 04/11/24 Potassium 4.3 mmol/L (3.3-5.1) 04/11/24 Chloride 110 mmol/L (96-108) H 04/11/24 Carbon Dioxide 19 mmol/L (22-29) L 04/11/24 BUN 16 mg/dL (9-16) 04/11/24 Creatinine 0.83 mg/dL (0.5-1.4) 04/11/24 Urine Creatinine 151.94 mg/dL 10/05/23 Protein/Creatinin Ratio 0.06 (<0.2) 10/05/23 Assessment & Plan Assessment & Plan (1) Hypertension: Code(s): I10 - Essential (primary) hypertension Category: Medical Qualifiers: Hypertension type: primary hypertension Qualified Code(s): I10 - Essential (primary) hypertension Plan Gloria has long standing hypertension and 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 Her BP has been low. She can continue Amlodipine 5 mg given edema( which I may D/C) . I also reduced Clonidine to 0.05 mg at night which I may wean her off. She is on ACEI. Her renal functions has been stable. Her urine output is good. She does not take NSAID's and maintain good hydration. I did not make any other medication changes today. F/U appointment given Coding Level of Care Code Est Pt Level 4 (12083) Diagnoses Primary hypertension I10 Hypertension type: primary hypertension
[2024-05-31 10:49] VITALS: BP 118/78; PULSE 50; O2SAT 95; BMI 31.5
--- OUTSIDE RECORDS SUMMARY | 2024-05-31 12:28 | XMS_ITS | Clinical Summary ---
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 Department of Internal Medicine recommends using [...] alternative screening schedule based on yancy Fuller., [facility] February 25, 2011 for patients [...] years. (World HealthOrganization Fracture Risk Assessment) [facility] Department of Internal Medicine recommendsusing National [...] Recently Relevant to Health Maintenance Care Teams Data Control Clerk Supervisor Relationship Specialty Start Date End Date Frankie Norton MD PCP - General Internal Medicine 06/09/21
--- OUTSIDE RECORDS SUMMARY | 2024-05-31 12:28 | XMS_ITS | Clinical Summary ---
Author Organization [facility] Address 100 [facility] [address] [place] [address] Phone Care Team Providers Care Machine Room Operator Name Role Phone Eliza Barros Primary Care Provider [phone] Allergies Active Allergy Reactions Criticality Noted Date [...] Hypertension 11/16/2004 Overview (09/15/2020): Dr Carballo is mental health associate Resolved Problems Problem Noted Date Diagnosed Date [...] (09/15/2020): Dr Christine Overweight 11/16/2004 09/15/2020 Immunizations Immunization Administration Dates Next Due Pneumococcal Polysaccharide 09/19/2013 [...] Due Date Last Done Comments Pneumococcal Vaccine: 50+ Ye ars (2 of 2 - PCV) 09/19/2014 09/19/2013 Influenza Vaccine (Season Ended) 2024 Pneumococcal Vaccine: Peds ( 0 to 5 Years) and At-Risk Patients (6 to 49 Years) Discontinued 09/19/2013 Hepatitis B Vaccine Aged Out No longe r eligible based on patient's age to complete this topic Insurance [facility] Medicare [facility] Medicare Care Teams Machine Room Operator Relationship Specialty Start Date End Date Eliza Barros PA PCP - General Physician Sharepoint Application Developer 04/19/22
--- OUTSIDE RECORDS SUMMARY | 2024-05-31 12:28 | XMS_ITS ---
Author Organization [facility] Address [address] [address] Care Team Providers Care Grinding Operator Name Role Phone CARLOS KNOWLES Primary Care Provider [phone] REASON FOR VISIT FYI only Encounters Encounter Location Date Provider Diagnosis [facility] 294 [facility] 202 [place] [address] 11/02/2023 CARLOS KNOWLES Plan Of Treatment No Information Progress Notes * Gloria WHITE LDOB:1940 ( 82 yo F)Acc No.[id number]:11/02/2023 Patient:?Gloria WHITE :1940???Age:82 Y???Sex:Female Phone: Address:[address] [place] [id number] * true * Date:? Generated for Nesha danielle/Kit/eTransmitting on:?05/31/2024 12:27 PM EDT
--- OUTSIDE RECORDS SUMMARY | 2024-05-31 12:28 | XMS_ITS | Patient Health Record ---
Author Organization [facility] Address 294 [facility] 202 [place] [address] Care Team Providers Care Lieutenant Ballistics Name Role Phone CARLOS KNOWLES Primary Care Provider Reason For Referral No Information Encounters Encounter Location Date Provider Diagnosis [facility] 294 [facility] [address] [place] [address] 11/02/2023 CARLOS KNOWLES Plan Of Treatment No Information Insurance Providers Payer Name Payer Address Payer Phone Subscriber Number Group Number Insured Name Patient Relationship to Insured Coverage Start Date Coverage End Date [facility] [address] [place] [id number] [phone] [id number] Gloria Quintanilla Self - patient is the insured
== END 2024-05-31 11:10 | disposition home or self-care (01) ==
LOC: HO.HKAS 10:42
PROVIDERS: PCP Internal Medicine; Visit Provider Internal Medicine Nephrology
DX: I10 Essential (primary) hypertension (principal)
CPT/HCPCS: 99214

== ENCOUNTER → 2024-05-31 10:41 | Outpatient (BNVA) | payer MEDICARE, SELFPAY | PROVIDERS: PCP Internal Medicine; Visit Provider Internal Medicine Nephrology | DX: I12.9 Hypertensive chronic kidney disease with stage 1 through stage 4 chronic kidney disease, or unspecified chronic kidney disease (principal); N18.9 Chronic kidney disease, unspecified | CPT/HCPCS: 99212 ==

== ENCOUNTER 2024-07-10 10:02 | Outpatient (AMB) | payer MEDICARE, SELFPAY ==
[2024-07-10 10:07] VITALS: BP 120/80; PULSE 68; O2SAT 98; BMI 33.4
--- NOTE | 2024-07-10 10:07 | HO.NEPHOV_ITS ---
Vital Signs 07/10/24 10:07 Height 5 ft 6 in Weight 207 lb BMI 33.4 BP 120/80 Blood Pressure Location Lt brachial Position Sitting Pulse 68 Pulse Source Pulse Oximeter Pulse Oximetry (%) 98 Oxygen Delivery Method Room Air Intake Visit Reasons: 6wk follow-up No labs-LVM Box Press Operator Required: No Accompanied by: Grand Child Allergies naproxen Allergy (Unknown, Verified 07/10/24 10:11) Unknown oxycodone [Percodan] Allergy (Unknown, Verified 07/10/24 10:11) Unknown Codeine Phosphate Allergy (Unknown, Uncoded 05/10/23 15:36) Unknown Latex Gloves Allergy (Unknown, Uncoded 05/10/23 15:36) Unknown HPI Comments Details: Gloria was seen in follow up of her CKD and hypertension. She had lost a lot of weight and her BP has been going low on her medications to a point that she is feeling wobbly and dizzy with orthostatic symptoms which has resolved with medication adjustment. She usually has been compliant with her medications. She has no vomiting,diarrhea, hematuria, renal stones, flank pain, orthostatic symptoms, NSAID use or any new systemic symptoms . She tries to maintain good hydration and currently feels well. [facility] Medical History (Updated 05/10/23 @ 16:04 by Dipesh Scott MD) Hypertension CKD (chronic kidney disease) stage 3, GFR 30-59 ml/min Surgical History Hx of cholecystectomy History of hysterectomy Family History Father Heart disease Social History Alcohol intake: never Patient Tobacco Use Status: Former Tobacco user Review of Systems Const All systems reviewed & are unremarkable except as noted in HPI and below Physical Exam Vital Signs: Last Vital Signs Pulse 68 07/10/24 10:07 BP 170/84 H 07/10/24 10:07 Pulse Ox 98 07/10/24 10:07 Oxygen Delivery Method Room Air 07/10/24 10:07 BMI result Body Mass Index 33.4 Const General: comfortable and no acute distress Orientation/consciousness: patient oriented x3 HEENT Head: Yes normocephalic Mouth: Normal oral and palatal mucosa present Eyes EOM: EOMs intact bilaterally Neck Neck: Yes supple Resp Auscultation: clear to auscultation bilaterally Cardio Jugular venous distension: no JVD Rate: regular rate GI Palpation (GI): Soft to palpation Auscultation: normal bowel sounds General: Yes no CVA tenderness Back/Spine/Pelvis Back: no CVA tenderness Skin General skin exam: no rashes or lesions noted Neuro General: patient oriented x3 and moves all extremities Extrem General: Yes no pedal edema Results Reviewed Nephrology Results: Sodium 139 mmol/L (135-145) 04/11/24 Potassium 4.3 mmol/L (3.3-5.1) 04/11/24 Chloride 110 mmol/L (96-108) H 04/11/24 Carbon Dioxide 19 mmol/L (22-29) L 04/11/24 BUN 16 mg/dL (9-16) 04/11/24 Creatinine 0.83 mg/dL (0.5-1.4) 04/11/24 Urine Creatinine 151.94 mg/dL 10/05/23 Protein/Creatinin Ratio 0.06 (<0.2) 10/05/23 Assessment & Plan Assessment & Plan (1) CKD (chronic kidney disease) stage 3, GFR 30-59 ml/min: Code(s): N18.30 - Chronic kidney disease, stage 3 unspecified Category: Medical Qualifiers: Chronic kidney disease stage 3 subtype: stage 3a (GFR 45-59) Qualified Code(s): N18.31 - Chronic kidney disease, stage 3a (2) Hypertension: Code(s): I10 - Essential (primary) hypertension Category: Medical Qualifiers: Hypertension type: primary hypertension Qualified Code(s): I10 - Essential (primary) hypertension Plan Gloria has long standing hypertension and 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 She can continue Amlodipine 5 mg given edema( which I may D/C) as well as Clonidine to 0.05 mg at night along with her other medications. She is on ACEI. Her renal functions has been stable. Her urine output is good. She does not take NSAID's and maintain good hydration. I did not make any other medication changes today. F/U appointment given Orders: Orders Creatinine 4 Months I10 - Essential (primary) hypertension, N18.31 - Chronic kidney disease, stage 3a Blood Urea Nitrogen 4 Months I10 - Essential (primary) hypertension, N18.31 - Chronic kidney disease, stage 3a Electrolytes 4 Months I10 - Essential (primary) hypertension, N18.31 - Chronic kidney disease, stage 3a Coding Level of Care Code Est Pt Level 4 (93276) Diagnoses Stage 3a chronic kidney disease N18.31 Chronic kidney disease stage 3 subtype: stage 3a (GFR 45-59) Primary hypertension I10 Hypertension type: primary hypertension
--- OUTSIDE RECORDS SUMMARY | 2024-07-10 11:30 | XMS_ITS | Clinical Summary ---
Author Organization [facility] ity Address [id number] [place] [id number] Care Team Providers Care Supervisor Sintering Plant Name Role Phone Frankie Norton MD Primary Care Provider [phone] Encounters Date Type Department Care Team Description 06/18/2024 Telephone Pediatrics [facility] [address] [place] [address] Frankie Norton MD information needed/[facility] elder care from Last 3 Months Surgical History Surgery Date Site/Laterality Comments HYSTERECTOMY [...] osteoarthrosi s, unspecified site Glaucoma 05/08/2012 DX:Glaucoma 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 Department of Internal Medicine recommends using [...] alternative screening schedule based on yancy Fuller., [facility] February 25, 2011 for patients [...] (World HealthOrganization Fracture Risk Assessment) The [facility] Department of Internal Medicine recommendsusing National [...] FRAX. Optional alternative screening schedule based on rodolfo Fuller al., [place] 2011 for patients with osteopenia (based on hip BMD T-score) is as follows: * advanced osteopenia (T scores -2.00 to -2.49), BMD testing every year * moderate osteopenia (T scores -1.50 to -1.99), BMD testing every 5years mild osteopenia or normal BMD (T scores -1.50 and higher), BMD testingevery 15 years Eliza NYE IMG DXA PROCEDURES Final Result from Last 3 Months or Most Recently Relevant to Health Maintenance Care Teams Supervisor Sintering Plant Relationship Specialty Start Date End Date Frankie Norton MD PCP - General Internal Medicine 06/09/21
== END 2024-07-10 10:49 | disposition home or self-care (01) ==
LOC: HO.HKAS 10:03
PROVIDERS: Visit Provider Internal Medicine Nephrology
DX: N18.31 Chronic kidney disease, stage 3a (principal); I10 Essential (primary) hypertension
CPT/HCPCS: 99214

== ENCOUNTER → 2024-07-10 10:02 | Outpatient (BNVA) | payer MEDICARE, SELFPAY | PROVIDERS: Visit Provider Internal Medicine Nephrology | DX: I12.9 Hypertensive chronic kidney disease with stage 1 through stage 4 chronic kidney disease, or unspecified chronic kidney disease (principal); N18.31 Chronic kidney disease, stage 3a | CPT/HCPCS: 99212 ==

== ENCOUNTER 2024-10-04 14:40 | Outpatient (REF) | payer MEDICARE, SELFPAY ==
--- OUTSIDE RECORDS SUMMARY | 2024-10-04 15:16 | XMS_ITS | Clinical Summary ---
Author Organization [facility] Address [address] [facility] [address] [place] [address] Phone Care Team Providers Care Line Service Technician Name Role Phone Eliza Barros Primary Care Provider [phone] Allergies Active Allergy Reactions Criticality Noted Date [...] Hypertension 11/16/2004 Overview (09/15/2020): Dr Carballo is die designer apprentice Resolved Problems Problem Noted Date Diagnosed Date [...] - PCV) 09/19/2014 09/19/2013 Influenza Vaccine (#1) 2024 Pneumococcal Vaccine: Peds ( 0 to 5 Years) and At-Risk Patients (6 to 49 Years) Discontinued 09/19/2013 Hepatitis B Vaccine Aged Out No longe r eligible based on patient's age to complete this topic Insurance [facility] Medicare [facility] [employer] Medicare Care Teams Line Service Technician Relationship Specialty Start Date End Date Eliza Barros PA PCP - General Physician Superintendent Stevedoring 04/19/22
--- OUTSIDE RECORDS SUMMARY | 2024-10-04 15:16 | XMS_ITS | Clinical Summary ---
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 COUNSELOR (background diabetic retinopathy) ([facility]) Family History Medical History Relation Name Comments [...] Panel) 01/16/2022 Colorectal Cancer Screening: Colonoscopy 01/16/2022 Falls Risk Assessment 01/16/2022 Hypertension/CHF/CAD Annual BMP Blood Test 01/16/2022 Social Influencers of Health Screening 01/16/2022 COVID-19 Vaccine ( season) 2023 10/17/2023, 09/23/2020, 04/11/2020, Additional history exists Depression Screening 02/08/2024 Influenza Vaccine (#1) 2024 10/17/2023, 2018 DTaP,Tdap,and Td Vaccines (3 - Td or Tdap) 06/10/2031 06/09/2021, 12/19/2002 Osteoporosis Screening (Bone Density Screening) 01/15/2037 01/15/2022 Pneumococcal Vaccine: 50+ Years Completed 11/12/2019, 12/15/2018, 10/03/2017, Additional history exists HIB Vaccines Aged Out No longer eligi [...] (World Health Organization Fracture Risk Assessment) The [facility] Department of Internal Medicine recommends using [...] alternative screening schedule based on yancy Fuller., [facility] February 25, 2011 for patients [...] years. (World HealthOrganization Fracture Risk Assessment) The [facility] Department of Internal Medicine recommendsusing National [...] Recently Relevant to Health Maintenance Care Teams Laboratory Machinist Relationship Specialty Start Date End Date Frankie Norton MD PCP - General Internal Medicine 06/09/21
[2024-10-04 17:53] LABS: Anion Gap 11 (12-20); Blood Urea Nitrogen 23 mg/dL (9-16); Calcium 9.2 mg/dL (8.4-10.2); Carbon Dioxide 25 mmol/L (22-29); Chloride 109 mmol/L (96-108); Estimated Glomerular Filt Rate 43; Potassium 3.9 mmol/L (3.3-5.1); Sodium 141 mmol/L (135-145)
== END 2024-10-04 14:41 | disposition home or self-care (01) ==
LOC: HO.HKASLDS 14:40
PROVIDERS: Visit Provider Internal Medicine Nephrology
DX: I12.9 Hypertensive chronic kidney disease with stage 1 through stage 4 chronic kidney disease, or unspecified chronic kidney disease (principal); N18.31 Chronic kidney disease, stage 3a
CPT/HCPCS: 36415; 80051; 82310; 82565; 84520

== ENCOUNTER 2024-10-11 13:02 | Outpatient (AMB) | payer MEDICARE, SELFPAY ==
--- NOTE | 2024-10-11 13:32 | HO.NEPHOV_ITS ---
Vital Signs 10/11/24 13:38 Height 5 ft 6 in Weight 205 lb 2 oz BMI 33.1 BP 130/72 Blood Pressure Location Lt brachial Position Sitting Pulse 60 Pulse Source Pulse Oximeter Pulse Oximetry (%) 94 Oxygen Delivery Method Room Air Intake Visit Reasons: 6mon follow-up w/labs-LVM Adjunct Instructor In Economics Required: No Accompanied by: Daughter Allergies naproxen Allergy (Unknown, Verified 10/11/24 13:38) Unknown oxycodone (Percodan) Allergy (Unknown, Verified 10/11/24 13:38) Unknown Codeine Phosphate Allergy (Unknown, Uncoded 05/10/23 15:36) Unknown Latex Gloves Allergy (Unknown, Uncoded 05/10/23 15:36) Unknown HPI Comments Details: Gloria was seen in follow up of her CKD and hypertension. She had lost a lot of weight and her BP has been going low on her medications to a point that she is feeling wobbly and dizzy with orthostatic symptoms which has resolved with medication adjustment. She usually has been compliant with her medications. She has no vomiting,diarrhea, hematuria, renal stones, flank pain, orthostatic symptoms, NSAID use or any new systemic symptoms . She tries to maintain good hydration and currently she has been having cough . [facility] Medical History (Updated 10/11/24 @ 13:52 by Dipesh Scott MD) Hypertension CKD (chronic kidney disease) stage 3, GFR 30-59 ml/min Surgical History Hx of cholecystectomy History of hysterectomy Family History Father Heart disease Social History Alcohol intake: never Patient Tobacco Use Status: Former Tobacco user Review of Systems Const All systems reviewed & are unremarkable except as noted in HPI and below Physical Exam Const General: comfortable and no acute distress Orientation/consciousness: patient oriented x3 HEENT Head: Yes normocephalic Mouth: Normal oral and palatal mucosa present Eyes EOM: EOMs intact bilaterally Neck Neck: Yes supple Resp Auscultation: rhonchi Cardio Jugular venous distension: no JVD Rate: regular rate GI Palpation (GI): Soft to palpation Auscultation: normal bowel sounds General: Yes no CVA tenderness Back/Spine/Pelvis Back: no CVA tenderness Skin General skin exam: no rashes or lesions noted Neuro General: patient oriented x3 and moves all extremities Extrem General: Yes no pedal edema Results Reviewed Nephrology Results: Sodium, (135-145) 141 mmol/L 10/04/24 Potassium, (3.3-5.1) 3.9 mmol/L 10/04/24 Chloride, (96-108) 109 mmol/L H 10/04/24 Carbon Dioxide, (22-29) 25 mmol/L 10/04/24 BUN, (9-16) 23 mg/dL H 10/04/24 Creatinine, (0.5-1.4) 1.20 mg/dL 10/04/24 Calcium, (8.4-10.2) 9.2 mg/dL 10/04/24 Urine Creatinine 151.94 mg/dL 10/05/23 Protein/Creatinin Ratio, (<0.2) 0.06 10/05/23 Assessment & Plan Assessment & Plan (1) Hypertension: Code(s): I10 - Essential (primary) hypertension Category: Medical Qualifiers: Hypertension type: primary hypertension Qualified Code(s): I10 - Essential (primary) hypertension (2) CKD (chronic kidney disease) stage 3, GFR 30-59 ml/min: Code(s): N18.30 - Chronic kidney disease, stage 3 unspecified Category: Medical Qualifiers: Chronic kidney disease stage 3 subtype: stage 3a (GFR 45-59) Qualified Code(s): N18.31 - Chronic kidney disease, stage 3a (3) Bronchitis: Code(s): J40 - Bronchitis, not specified as acute or chronic Category: Medical Plan Gloria has long standing hypertension and 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 She can continue Amlodipine 5 mg as well as Clonidine to 0.05 mg at night along with her other medications. She is on ACEI. Her renal functions has been stable. Her urine output is good. She does not take NSAID's and maintain good hydration. Prescribed PO prednisone for a few days. Encouraged to go to Urgent Care and get CXR and antibiotics if needed. I did not make any other medication changes today. F/U appointment given Orders: Orders Vitamin D 25-OH Total 6 Months I10 - Essential (primary) hypertension, N18.31 - Chronic kidney disease, stage 3a Complete Blood Count Auto Diff 6 Months I10 - Essential (primary) hypertension, N18.31 - Chronic kidney disease, stage 3a Creatinine 6 Months I10 - Essential (primary) hypertension, N18.31 - Chronic kidney disease, stage 3a Blood Urea Nitrogen 6 Months I10 - Essential (primary) hypertension, N18.31 - C hronic kidney disease, stage 3a Electrolytes 6 Months I10 - Essential (primary) hypertension, N18.31 - Chronic kidney disease, stage 3a Parathyroid Hormone Intact 6 Months I10 - Essential (primary) hypertension, N18.31 - Chronic kidney disease, stage 3a Phosphorus 6 Months I10 - Essential (primary) hypertension, N18.31 - Chronic kidney disease, stage 3a Medications: New prednisone 20 mg PO DAILY 10 tabs 0RF Coding Level of Care Code Est Pt Level 4 (87198) Diagnoses Primary hypertension I10 Hypertension type: primary hypertension Stage 3a chronic kidney disease N18.31 Chronic kidney disease stage 3 subtype: stage 3a (GFR 45-59) Bronchitis J40
[2024-10-11 13:38] VITALS: BP 130/72; PULSE 60; O2SAT 94; BMI 33.1
--- OUTSIDE RECORDS SUMMARY | 2024-10-11 14:18 | XMS_ITS | Clinical Summary ---
Author Organization [facility] Address [address] [facility] [address] [place] [address] Phone Care Team Providers Care Industrial Engineering Manager Name Role Phone Eliza Barros Primary Care Provider [phone] Allergies Active Allergy Reactions Criticality Noted Date [...] Hypertension 11/16/2004 Overview (09/15/2020): Dr Carballo is fire patrol Resolved Problems Problem Noted Date Diagnosed Date [...] Health Medicare [employer] Medicare Care Teams Industrial Engineering Manager Relationship Specialty Start Date End Date Eliza Barros PA PCP - General Physician Shotgun Shell Reprinting Unit Operator 04/19/22
--- OUTSIDE RECORDS SUMMARY | 2024-10-11 14:18 | XMS_ITS | Clinical Summary ---
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 V24, 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 (World HealthOrganization Fracture Risk Assessment) The [employer] [facility] Department of Internal Medicine recommendsusing National Osteoporosis [...] Recently Relevant to Health Maintenance Care Teams Aeronautical Research Engineer Relationship Specialty Start Date End Date Frankie Norton MD PCP - General Internal Medicine 06/09/21
== END 2024-10-11 14:01 | disposition home or self-care (01) ==
LOC: HO.HKAS 13:02
PROVIDERS: Visit Provider Internal Medicine Nephrology
DX: I10 Essential (primary) hypertension (principal); N18.31 Chronic kidney disease, stage 3a; J40 Bronchitis, not specified as acute or chronic
CPT/HCPCS: 99214

== ENCOUNTER 2024-10-11 13:02 | Outpatient (REF) | payer MEDICARE, SELFPAY ==
[2024-10-11 18:52] LABS: Total Protein Urine Random < 7 mg/dL (<12)
== END 2024-10-11 13:03 | disposition home or self-care (01) ==
LOC: HO.HKASLDS 13:02
PROVIDERS: Visit Provider Internal Medicine Nephrology
DX: I12.9 Hypertensive chronic kidney disease with stage 1 through stage 4 chronic kidney disease, or unspecified chronic kidney disease (principal); N18.31 Chronic kidney disease, stage 3a; J40 Bronchitis, not specified as acute or chronic; Z79.899 Other long term (current) drug therapy
CPT/HCPCS: 82570; 84156; 99212